=== PATIENT | female | born 1995 | race Caucasian/White ===

== ENCOUNTER 2017-02-23 13:53 | Emergency (ER) | payer BC ==
[~2017-02-23] VITALS: Ht 170.2 cm; Wt 82.4 kg
[~2017-02-23 13:53] MED LIST: HYDR-3237 PO; IBUP-1222 PO; ONDA4TAB7 PO
[2017-02-23 14:01] VITALS: BP_DIAS 84
[2017-02-23] MEDS ORDERED: MAALOX/HYOSCYAMINE/LIDOCAINE 45 ML BTL ONE (14:08)
[2017-02-23] MEDS ORDERED: MAALOX/HYOSCYAMINE/LIDOCAINE 45 ML BTL PO ONE (14:30)
[2017-02-23 15:58] LABS: HEMATOCRIT 37.5 % (34.6-47.8); HEMOGLOBIN 12.7 g/dL (11.7-16.4); WHITE BLOOD COUNT 10.9 x10^3/uL (3.4-10)
[2017-02-23 16:06] LABS: BLOOD UREA NITROGEN 5 mg/dL (7-18)
[2017-02-23 17:17] VITALS: BP_SYST 111
== END 2017-02-23 17:19 | disposition home or self-care (01) ==
LOC: ED 15:13
DX: O26.893 Other specified pregnancy related conditions, third trimester (principal); R07.89 Other chest pain; Z3A.31 31 weeks gestation of pregnancy
CPT/HCPCS: 36415; 71020; 80048; 82040; 85025; 85379; 93005; 99285

== ENCOUNTER 2017-02-23 17:42 | Outpatient (CLI) | payer BC ==
[~2017-02-23] VITALS: Ht 157.5 cm; Wt 80.0 kg
== END 2017-02-23 18:49 | disposition home or self-care (01) ==
LOC: LDOP 17:42
PROVIDERS: ATTEND Obstetrics & Gynecology
DX: O26.893 Other specified pregnancy related conditions, third trimester (principal); R06.02 Shortness of breath; R07.9 Chest pain, unspecified; Z3A.31 31 weeks gestation of pregnancy
CPT/HCPCS: 59025; 99211; G0463

== ENCOUNTER 2017-04-30 04:20 | Inpatient (IN) | payer OTHER ==
[~2017-04-30] VITALS: Ht 157.5 cm; Wt 86.4 kg
[2017-04-30] MEDS ORDERED: OXYTOCIN 30U/ 0.9% NaCL 500ML 500 ML IV PRN (05:02)
[2017-04-30] MEDS ORDERED: OXYTOCIN 30U/ 0.9% NaCL 500ML 500 ML IV ONE (05:02)
[2017-04-30] MEDS ORDERED: OXYTOCIN 30U/ 0.9% NaCL 500ML 500 ML ONE (05:14)
[2017-04-30] MEDS ORDERED: NEWBORN KIT ONE (05:14)
[2017-04-30 05:20] VITALS: BP 118/72
[2017-04-30] MEDS ORDERED: ONDANSETRON 2MG/ML, 2ML IVPush PRN (05:30)
[2017-04-30] MEDS ORDERED: CALCIUM CARBONATE 500 MG TAB.CHEW PO PRN (05:30)
[2017-04-30] MEDS ORDERED: FENTANYL PF 100 MCG/2ML IV PRN (05:30)
[2017-04-30] MEDS: LACTATED RINGERS 1,000 ML IV SCH ×5 (05:36→21:56)
[2017-04-30] MEDS ORDERED: MISOPROSTOL 200 MCG TABLET ONE (05:50)
[2017-04-30] MEDS ORDERED: LIDOCAINE 1%, 20ML ONE (05:51)
[2017-04-30 07:01] LABS: HEMATOCRIT 38.8 % (34.6-47.8); HEMOGLOBIN 13.2 g/dL (11.7-16.4); WHITE BLOOD COUNT 12.1 x10^3/uL (3.4-10)
[2017-04-30] MEDS ORDERED: FENTANYL PF 100 MCG/2ML ONE ×2 (08:24→09:47)
[2017-04-30] MEDS: FENTANYL PF 100 MCG/2ML IVPush PRN ×2 (08:27→09:50)
[2017-04-30] MEDS ORDERED: BUPIVACAINE/PF 0.25% ONE (10:14)
[2017-04-30] MEDS ORDERED: FENTANYL/BUPIV./NS/PF 250 ML EPIDCONT ONE (10:14)
[2017-04-30] MEDS ORDERED: NALOXONE 0.4 MG/ML, 1ML IVPush PRN (10:30)
[2017-04-30] MEDS ORDERED: EPHEDRINE 50 MG/ML, 1ML IVPush PRN (10:30)
[2017-04-30] MEDS ORDERED: FENTANYL/BUPIV./NS/PF 250 ML EPIDCONT SCH (11:00)
[2017-04-30] MEDS ORDERED: LACTATED RINGERS 1,000 ML IVBOLUS PRN (11:00)
[2017-04-30] MEDS ORDERED: PREN1TAB60 PO (11:18)
[2017-04-30] MEDS: D5%-LACTATED RINGERS 1,000 ML IV SCH ×3 (13:02→21:02)
[2017-04-30] MEDS ORDERED: ONDANSETRON 2MG/ML, 2ML ONE (17:04)
[2017-05-01] MEDS: LACTATED RINGERS 1,000 ML IV SCH ×9 (00:19→21:05)
[2017-05-01] MEDS ORDERED: LACTATED RINGERS 1,000 ML IV SCH (00:40)
[2017-05-01] MEDS ORDERED: OXYTOCIN 30U/ 0.9% NaCL 500ML 500 ML IV SCH (00:40)
[2017-05-01] MEDS ORDERED: SODIUM CITRATE/CITRIC ACID 30 ML UDC ONE (00:42)
[2017-05-01] MEDS ORDERED: METOCLOPRAMIDE 5 MG/ML, 2ML ONE (00:42)
[2017-05-01] MEDS ORDERED: EPHEDRINE 50 MG/ML, 1ML IVPush PRN (01:00)
[2017-05-01] MEDS ORDERED: MEPERIDINE/PF 25MG/0.5ML IVPush PRN (01:00)
[2017-05-01] MEDS ORDERED: OXYcodone 5 MG/5 ML ORAL.SOL UDC PO PRN (01:00)
[2017-05-01] MEDS ORDERED: HYDROcodone/APAP 7.5-325MG/15ML UDC PO PRN (01:00)
[2017-05-01] MEDS ORDERED: HYDROmorphone 1 MG/ML, 1ML IV PRN (01:00)
[2017-05-01] MEDS ORDERED: SODIUM CITRATE/CITRIC ACID 30 ML UDC PO ONE (01:00)
[2017-05-01] MEDS ORDERED: hydrALAzine 20 MG/ML, 1ML IV PRN (01:00)
[2017-05-01] MEDS ORDERED: METOCLOPRAMIDE 5 MG/ML, 2ML IV ONE (01:00)
[2017-05-01] MEDS ORDERED: FENTANYL PF 100 MCG/2ML IV PRN (01:00)
[2017-05-01] MEDS ORDERED: PROMETHAZINE 25 MG/ML, 1ML IV PRN (01:00)
[2017-05-01] MEDS ORDERED: ONDANSETRON 2MG/ML, 2ML IVPush PRN (01:00)
[2017-05-01] MEDS ORDERED: ALBUTEROL SULFATE 2.5 MG/3 ML NPPB PRN (01:00)
[2017-05-01] MEDS ORDERED: LACTATED RINGERS 1,000 ML IVBOLUS ONE (01:00)
[2017-05-01] MEDS ORDERED: LABETALOL 5MG/ML, 20ML IV PRN (01:00)
[2017-05-01] MEDS: OXYTOCIN 30U/ 0.9% NaCL 500ML 500 ML IV SCH ×3 (01:05→21:05)
[2017-05-01] MEDS ORDERED: CEFAZOLIN 1,000 MG ONE (01:07)
[2017-05-01] MEDS ORDERED: PROPOFOL 10 MG/ML, 20ML ONE (01:07)
[2017-05-01] MEDS ORDERED: OXYTOCIN 10 UNITS/ML, 1ML ONE ×2 (01:07)
[2017-05-01] MEDS ORDERED: ONDANSETRON 2MG/ML, 2ML ONE (01:07)
[2017-05-01] MEDS ORDERED: FENTANYL PF 100 MCG/2ML ONE (01:07)
[2017-05-01] MEDS ORDERED: KETOROLAC 30 MG/1 ML ONE (01:07)
[2017-05-01] MEDS ORDERED: DEXAMETHASONE 4 MG/ML, 1ML ONE (01:07)
[2017-05-01] MEDS ORDERED: ACETAMINOPHEN 325 MG TABLET PO PRN ×2 (01:30)
[2017-05-01] MEDS ORDERED: DIPH,PERTUSS(ACELL),TET VAC/PF NC IM-VACC PRN (01:30)
[2017-05-01] MEDS ORDERED: MISOPROSTOL 200 MCG TABLET PR PRN (01:30)
[2017-05-01] MEDS ORDERED: OXYcodone/APAP 5/325MG TABLET PO PRN (01:30)
[2017-05-01] MEDS: KETOROLAC 30 MG/1 ML IV SCH ×4 (01:30→19:34)
[2017-05-01] MEDS ORDERED: SIMETHICONE 80 MG CHEW TAB PO PRN (01:30)
[2017-05-01] MEDS ORDERED: MEASLES,MUMPS&RUBELLA VACC/PF 0.5 ML SQ-VACC PRN (01:30)
[2017-05-01] MEDS ORDERED: CALCIUM CARBONATE 500 MG TAB.CHEW PO PRN (01:30)
[2017-05-01] MEDS ORDERED: morphine SULFATE 10 MG/ML, 1ML IVPush PRN ×2 (01:30)
[2017-05-01] MEDS ORDERED: ACETAMINOPHEN 500 MG TABLET PO ONE (02:30)
[2017-05-01 04:20] VITALS: BP 116/79
[2017-05-01] MEDS: D5%-LACTATED RINGERS 1,000 ML IV SCH (05:02)
[2017-05-01] MEDS ORDERED: PRENATAL VIT/IRON/FA 1 EACH TABLET ONE (07:39)
[2017-05-01] MEDS: DOCUSATE 100 MG CAPSULE PO PRN ×2 (07:40→19:34)
[2017-05-01] MEDS: PRENATAL VIT/IRON/FA 1 EACH TABLET PO SCH (07:40)
[2017-05-01 07:58] VITALS: BP 110/70
[2017-05-01 10:09] LABS: HEMATOCRIT 33.6 % (34.6-47.8); HEMOGLOBIN 11.5 g/dL (11.7-16.4)
[2017-05-01 10:30] LABS: DIFF TOTAL CELLS COUNTED 100 CELL DIFF
[2017-05-01 10:33] LABS: LARGE PLATELETS 1+
[2017-05-01 12:15] VITALS: BP 111/79
[2017-05-01 16:48] VITALS: BP 122/70
[2017-05-01 19:20] VITALS: BP 111/76
[2017-05-01] MEDS: IBUPROFEN 600 MG TABLET PO PRN (19:40)
[2017-05-02] MEDS: LACTATED RINGERS 1,000 ML IV SCH ×5 (01:05→17:05)
[2017-05-02] MEDS: IBUPROFEN 600 MG TABLET PO PRN ×4 (01:16→20:07)
[2017-05-02] MEDS: OXYcodone/APAP 5/325MG TABLET PO PRN ×4 (01:16→20:01)
[2017-05-02] MEDS: KETOROLAC 30 MG/1 ML IV SCH ×3 (01:30→13:30)
[2017-05-02] MEDS: OXYTOCIN 30U/ 0.9% NaCL 500ML 500 ML IV SCH ×2 (07:05→17:05)
[2017-05-02 08:05] VITALS: BP 106/71
[2017-05-02] MEDS: DOCUSATE 100 MG CAPSULE PO PRN ×2 (08:18→20:01)
[2017-05-02] MEDS: PRENATAL VIT/IRON/FA 1 EACH TABLET PO SCH (08:18)
[2017-05-02 19:30] VITALS: BP 112/80
[2017-05-03] MEDS: LACTATED RINGERS 1,000 ML IV SCH ×3 (01:05→09:05)
[2017-05-03] MEDS: OXYcodone/APAP 5/325MG TABLET PO PRN ×5 (02:19→23:39)
[2017-05-03] MEDS: IBUPROFEN 600 MG TABLET PO PRN ×4 (02:19→20:07)
[2017-05-03] MEDS: OXYTOCIN 30U/ 0.9% NaCL 500ML 500 ML IV SCH (03:05)
[2017-05-03] MEDS: PRENATAL VIT/IRON/FA 1 EACH TABLET PO SCH (07:44)
[2017-05-03] MEDS: DOCUSATE 100 MG CAPSULE PO PRN ×2 (07:44→20:07)
[2017-05-03 07:51] VITALS: BP 104/64
[2017-05-03 20:00] VITALS: BP 114/76
[2017-05-04] MEDS: IBUPROFEN 600 MG TABLET PO PRN ×4 (04:28→23:20)
[2017-05-04] MEDS: OXYcodone/APAP 5/325MG TABLET PO PRN ×4 (04:28→21:31)
[2017-05-04] MEDS: DOCUSATE 100 MG CAPSULE PO PRN ×2 (11:14→21:30)
[2017-05-04] MEDS: PRENATAL VIT/IRON/FA 1 EACH TABLET PO SCH (11:14)
[2017-05-04 12:03] VITALS: BP 126/85
[2017-05-04 19:30] VITALS: BP 125/87
[2017-05-05] MEDS: OXYcodone/APAP 5/325MG TABLET PO PRN ×3 (01:43→14:03)
[2017-05-05] MEDS: PRENATAL VIT/IRON/FA 1 EACH TABLET PO SCH (06:55)
[2017-05-05] MEDS: IBUPROFEN 600 MG TABLET PO PRN ×2 (06:55→14:03)
[2017-05-05] MEDS: DOCUSATE 100 MG CAPSULE PO PRN (06:55)
[2017-05-05] MEDS ORDERED: HYDROCORTISONE OINT 1%, 28GM TP PRN (08:30)
[2017-05-05] MEDS ORDERED: DIPHENHYDRAMINE 25 MG CAPSULE PO PRN (08:30)
[2017-05-05] MEDS ORDERED: IBUP-1222 PO (10:47)
[2017-05-05] MEDS ORDERED: OXYC-302 PO (10:47)
== END 2017-05-05 16:20 | disposition home or self-care (01) | DRG 766 ==
LOC: LDOP 04:20 → LDIP 05:03 → 2NW 05-01 04:15
PROVIDERS: ADMIT Obstetrics & Gynecology; ATTEND Obstetrics & Gynecology
PROC: 10D00Z1 Extraction of Products of Conception, Low, Open Approach (ICD-10-PCS; principal; 2017-05-01)
DX: O42.92 Full-term premature rupture of membranes, unspecified as to length of time between rupture and onset of labor (principal); O64.0XX0 Obstructed labor due to incomplete rotation of fetal head, not applicable or unspecified; Z37.0 Single live birth; Z3A.40 40 weeks gestation of pregnancy; Z90.89 Acquired absence of other organs; Z23 Encounter for immunization
CPT/HCPCS: 36415; 82803; 85025; 86850; 86900; 89060; J0690; J1100; J1885; J2405; J2704; J3010; J3490; J0330; J2370; J2590; J2765; J7120; J7121; Q0114